=== PATIENT | male | born 1950 | race American Indian/Alaskan Native ===

== ENCOUNTER 2022-03-05 08:47 | Emergency (ER) | payer MEDICARE, OTHER ==
[~2022-03-05] VITALS: Ht 185.4 cm; Wt 105.7 kg
[~2022-03-05 08:47] MED LIST: ASPIRIN EC81 MG PO; DOXYCYCLINE HY100 MG PO; LISINOPRIL5 MG PO
[2022-03-05] MEDS ORDERED: LISINOPRIL20 MG PO (09:01)
[2022-03-05] MEDS ORDERED: ALEVE220 M1 PO (09:01)
[2022-03-05] MEDS ORDERED: SILDENAFIL20 MG PO (09:02)
[2022-03-05] MEDS ORDERED: REGLAN10 MG PO (11:15)
== END 2022-03-05 11:38 | disposition home or self-care (01) ==
LOC: ED 08:47
DX: R11.2 Nausea with vomiting, unspecified (principal); R19.7 Diarrhea, unspecified; I10 Essential (primary) hypertension; Z20.822 Contact with and (suspected) exposure to COVID-19; Z79.899 Other long term (current) drug therapy; Z79.82 Long term (current) use of aspirin
CPT/HCPCS: 36415; 80053; 83690; 85025; 87502; C9803; J7030; U0003

== ENCOUNTER 2022-11-21 12:00 | Day surgery (SDC) | payer MEDICARE, OTHER ==
[~2022-11-21] VITALS: Ht 185.4 cm; Wt 108.2 kg
--- NOTE | ~2022-11-21 | OR ---
[facility] [address] [place], [place] [address] Draft DATE OF OPERATION: 11/21/2022 SURGEON: Anna Aviles MD PREOPERATIVE DIAGNOSIS: Colon surveillance. POSTOPERATIVE DIAGNOSIS: Sigmoid and left-sided diverticulosis, otherwise normal. PROCEDURE: Total colonoscopy to cecum. ANESTHESIA: Intravenous sedation, propofol infusion; America Allen CRNA INDICATIONS: This 71-year-old man is a patient of Dr. Waggoner at [facility]. He is here for surveillance colonoscopy. He last undergone colonoscopy in 2012 at which time he was found to have diverticulosis. He understands the risk of colonoscopy including but not limited to bleeding, infection, perforation, and so on. Understanding this, he wished to proceed. FINDINGS: The prep was good. Complete colonoscopy was undertaken of the cecum without question. He had numerous diverticula of the sigmoid and left colon. No sign of polyps or colitis. PROCEDURE IN DETAIL: The patient was brought to the endoscopy suite and placed in lateral decubitus position, given intravenous sedation to the point of slurred speech and nystagmus. Digital rectal examination was normal. An Olympus video colonoscope was passed in the rectum and manipulated throughout the colon ultimately intubating the cecum itself. The ileocecal valve and appendiceal orifice were normal. The scope was withdrawn from that point. Examination showed no sign of abnormality into the left colon. Numerous diverticula were once again seen. Retroflexed view of the rectum was normal. The scope was removed. The patient was taken to the recovery room in good condition. CONCLUDING DIAGNOSIS: Diverticulosis, no evidence of polyps. PATIENT NAME: LUIS MIGUEL DIEZ OPERATIVE REPORT DATE OF : 52 REPORT #: [id number] PHYSICIAN: ANNA AVILES MD PCP: NAOMI WAGGONER MD REPORT IS CONFIDENTIAL AND NOT TO BE RELEASED WITHOUT AUTHORIZATION [facility] [address] [place], [place] [address] Draft PLAN: Recommend repeat colonoscopy in 10 years if clinically appropriate. MD GLORIA Fontenot/ENZO /[id number] cc: Dr. Naomi Waggoner [facility] Copies: ~ PATIENT NAME: LUIS MIGUEL DIEZ OPERATIVE REPORT DATE OF : 52 REPORT #: [id number] PHYSICIAN: ANNA AVILES MD PCP: NAOMI WAGGONER MD REPORT IS CONFIDENTIAL AND NOT TO BE RELEASED WITHOUT AUTHORIZATION
[~2022-11-21 12:00] MED LIST changes: +ALEVE220 M1 PO; +LISINOPRIL20 MG PO; +REGLAN10 MG PO; +SILDENAFIL20 MG PO
--- NOTE | 2022-11-21 13:49 | NUR ---
11/21/22 1349 Sally Lora 1344 PT ARRIVED SLEEPING, RESPOSIVE TO VERBAL STIMULI, BREATHING IS UNLABORED.NC AT 3LPM NC, SATS >98%. DENIED PAIN AND NAUSEA.
--- NOTE | 2022-11-21 21:50 | EKG ---
[facility] [address] [facility] [place] [address] Signed Marked sinus bradycardia Abnormal ECG No previous ECGs available Confirmed by Andrey Brothers MD () on 11/21/2022 9:50:03 PM Electronically Signed By: ANDREY BROTHERS MD 11/21/222149 PATIENT NAME: LUIS MIGUEL DIEZ Electrocardiogram DATE OF : 52 PHYSICIAN: ANDREY BROTHERS MD REPORT #: [id number] REPORT IS CONFIDENTIAL AND NOT TO BE RELEASED WITHOUT AUTHORIZATION
== END 2022-11-21 14:20 | disposition home or self-care (01) ==
LOC: OPS 12:00 → DS 13:00 → OPS 13:00
PROVIDERS: ATTEND Surgery
PROC: 0DJD8ZZ Inspection of Lower Intestinal Tract, Via Natural or Artificial Opening Endoscopic (ICD-10-PCS; principal; 2022-11-21 13:00)
DX: Z12.11 Encounter for screening for malignant neoplasm of colon (principal); K57.30 Diverticulosis of large intestine without perforation or abscess without bleeding; K42.9 Umbilical hernia without obstruction or gangrene; Z86.19 Personal history of other infectious and parasitic diseases
CPT/HCPCS: 00812; 99153; G0500; J2704; J7121

== ENCOUNTER 2025-06-22 07:14 | Day surgery (SDC) | payer MEDICARE ==
[~2025-06-22] VITALS: Ht 182.9 cm; Wt 111.0 kg
[2025-06-22] VITALS (8 sets, daily range): BP systolic 110–145; BP diastolic 39–65
[~2025-06-22 07:14] MED LIST changes: +EYE HEALTH ARE1 EACH PO; +EZALLOR SPRINKL10 MG PO; +GABAPENTIN 600 MG TAB PO SCH; +IBLOOD GLUCOSE TEST STRIP 1 EA TEST VI PRN; +INTRA-ARTICULAR ANALGESIC INJECTION XX SCH; +JARDIANCE10 MG PO; +JOINT HEALTH T1 EACH PO; +KRILL OIL500 MG PO; +LACTATED RINGER'S 1,000 ML IV SCH; +LIDOCAINE HCL 1% 5 ML SDV INJ ONE; +MULTI VITAMIN1 EACH PO; +OXYCODONE HCL 5 MG TAB PO SCH; +PANTOPRAZOLE SODIUM 40 MG TABEC PO SCH; +TRANEXAMIC ACID IN NACL,ISO-OS 1,000 MG/100 ML PIGGYBACK IV SCH; +VANCOMYCIN HCL 1,000 MG in DEXTROSE 5% 250 ML IV SCH
--- NOTE | 2025-06-22 07:40 | NUR ---
VISITED DURING SPIRITUAL CARE ROUNDS. PT SUPPORTED BY IN ROOM. PT APPEARED CALM, STATED NO NEEDS. APPEARED TENSE, ANXIOUS, STATED WORRIED THAT PT WOULD NOT SURVIVE ANESTHESIA, REQUESTED PRAYER. THERAPEUTIC SPECIALIST PROVIDED SUPPORTIVE PRESENCE, HOSPITALITY, PRAYER, FACILITATED INTERACTION WITH THERAPY ANIMAL. PT AND EXPRESSED GRATITUDE, ARMAND SOURCE OF STRENGTH.
[2025-06-22] MEDS ORDERED: BUPIVACAINE 0.75% IN DEXTROSE 2 ML AMP ONE (08:33)
[2025-06-22] MEDS ORDERED: KETOROLAC TROMETHAMINE 30 MG/ML VIAL IV PRN (08:45)
[2025-06-22] MEDS ORDERED: OXYCODONE HCL 5 MG TAB PO PRN (08:45)
[2025-06-22] MEDS ORDERED: LIDOCAINE HCL 2% 5 ML SDV ONE (09:00)
[2025-06-22] MEDS ORDERED: GLYCOPYRROLATE 1 MG/5 ML MDV ONE (09:34)
[2025-06-22] MEDS ORDERED: ACETAMINOPHEN 1,000 MG/100 ML VIAL ONE (10:00)
[2025-06-22] MEDS ORDERED: METOCLOPRAMIDE HCL 10 MG/2 ML SDV IV PRN (10:15)
[2025-06-22] MEDS ORDERED: HYDROmorphone HCL 1 MG/ML SYR IV PRN (10:15)
[2025-06-22] MEDS ORDERED: NALOXONE HCL 0.4 MG SYR IV PRN (10:15)
[2025-06-22] MEDS ORDERED: fentaNYL citrate 50 MCG/ML SDV IV PRN (10:15)
[2025-06-22] MEDS ORDERED: IBLOOD GLUCOSE TEST STRIP 1 EA TEST VI PRN (10:15)
[2025-06-22] MEDS ORDERED: KETOROLAC TROMETHAMINE 30 MG/ML VIAL ONE (10:55)
[2025-06-22] MEDS ORDERED: CEFUROXIME250 MG PO (10:59)
[2025-06-22] MEDS ORDERED: OXYCODONE HCL5 M1 PO ×2 (11:00→11:09)
[2025-06-22] MEDS ORDERED: DICLOFENAC SODI75 MG PO (11:00)
[2025-06-22] MEDS ORDERED: ACETAMINOPHEN500 MG PO (11:00)
[2025-06-22] MEDS ORDERED: SENNA LAX8.6 MG PO (11:00)
[2025-06-22] MEDS ORDERED: TRANEXAMIC ACI650 MG PO (11:01)
--- NOTE | 2025-06-22 11:03 | NUR ---
06/22/25 1103 Julita Longoria 1055: PT ARRIVES TO PACU. REPORT RECEIVED FROM STEM PROCESSING MACHINE OPERATOR AND BIG DATA ANALYTICS LEAD.
[2025-06-22] MEDS ORDERED: CEFUROXIME500 MG PO (11:09)
[2025-06-22] MEDS ORDERED: TRANEXAMIC ACID IN NACL,ISO-OS 1,000 MG/100 ML PIGGYBACK IV SCH (11:31)
--- NOTE | 2025-06-22 11:48 | NUR ---
IN PT ROOM FOR TXA ADMIN. PT CONTINUES TO REPORT NO PAIN AND UNABLE TO MOVE LEGS. PT TOLERATED 100% OF SNACK AND WATER WITHOUT DIFFICULTY SWALLOWING. CALL LIGHT WITHIN REACH. FAMILY HAS LEFT TO GET MEDICATIONS FROM [facility].
--- NOTE | 2025-06-22 12:27 | OR ---
[facility] [address] [facility] [place], [place] [address] Signed DATE OF OPERATION: 06/22/2025 SURGEON: Jessy Patel MD PREOPERATIVE DIAGNOSIS: Severe left hip degenerative joint disease. POSTOPERATIVE DIAGNOSIS: Severe left hip degenerative joint disease. PROCEDURE PERFORMED: Left total hip arthroplasty with Artemio. BINDERY CHIEF: None. ANESTHESIA: Spinal. BLOOD LOSS: 200 mL. IMPLANTS: Insignia size 6 with a 58 mm cup, a +2.5 head. BRIEF HISTORY: Luis Miguel is a 74-year-old gentleman with progressive worsening of osteoarthritis in his hip. He had undergone nonoperative treatment without substantial relief, wished to proceed with operative. DESCRIPTION OF PROCEDURE: Once consent was obtained, he was taken to the operating room. After adequate anesthesia was placed on the OR table in the right lateral decubitus position. All downside pressure points were well padded. An axillary roll was placed. The leg was prepped and draped in a standard sterile fashion up to the ribcage. The computer array for the Adelaida Artemio was then placed in the posterior aspect of the iliac crest one handbreadth posterior to the ASIS. This was done through separate stab incisions. The hip was then approached through standard anterior lateral approach, carried through skin and subcutaneous tissue. The IT band was divided longitudinally. The vastus lateralis was divided from the tip of the trochanter along the anterior margin of the femur Electronically Signed By: JESSY PATEL MD 06/22/25 1227 PATIENT NAME: LUIS MIGUEL DIEZ OPERATIVE REPORT DATE OF : 52 REPORT #: [id number] PHYSICIAN: JESSY PAETL MD PCP: NAOMI BAE MD REPORT IS CONFIDENTIAL AND NOT TO BE RELEASED WITHOUT AUTHORIZATION [facility] [address] [place], [place] [address] Signed distally. This was then carried up into the medius and capsule. The gluteus minimus was released as well. The capsule was then split from the femoral neck to the acetabular rim, peeled off the anterior femoral neck around to the level of the lesser trochanter. Periacetabular soft tissue was removed as best we could. The femoral landmarks were then taken with the computer and the hip was dislocated. The femoral neck cut was made one fingerbreadth above the lesser trochanter. The periacetabular soft tissue was continued to be cleaned up and the osteophytes removed. The pulvinar was removed. The fine anatomic points of the acetabulum then registered with the robot. The robot was then brought in. The acetabulum was reamed in a single pass up to 58. The 58 cup was then impacted in 40 degrees of abduction and 20 degrees of anteversion. The acetabular liner was then impacted. Attention was then turned to proximal femur which was opened using OnHand cutter, followed by the Tawanda awl. It was then reamed with a lateralize reamer and sequentially broached up to a 6 broach, which was found to be well fitting. This was left in position. A high offset neck and initially a 2.5 and then a +2.5 head were positioned. The +2.5 head was stable. He had good range of motion and the leg lengths were 2 mm long according to computer. Once this was completed, the hip was dislocated. The trials were removed. The final stem was impacted until it was well-seated. The +2.5 was impacted onto the trunnion after cleaning it. The hip was then reduced again. Range of motion was found to be good. The leg lengths were equal. The wound was then irrigated with one bottle Surgiphor followed by normal saline. The periarticular soft tissues were injected with 80 mL ropivacaine Toradol mixture. The capsule was then closed using #2 FiberWire. The vastus and IT band layers were closed independently using #2 Stratafix, the subcutaneous tissue with 0 Stratafix and the skin with 3-0 Stratafix. Wound was sealed with LiquiBand and dressed with an Acticoat-7 dressing as were the two puncture holes for the robot. Jessy Patel MD BA/JOSHL /[id number] Electronically Signed By: JESSY PATEL MD 06/22/25 1227 PATIENT NAME: LUIS MIGUEL DIEZ OPERATIVE REPORT DATE OF : 52 REPORT #: [id number] PHYSICIAN: JESSY PATEL MD PCP: NAOMI BAE MD REPORT IS CONFIDENTIAL AND NOT TO BE RELEASED WITHOUT AUTHORIZATION [facility] [address] [place] [id number] Signed Copies: ~ Electronically Signed By: JESSY PATEL MD 06/22/25 1227 PATIENT NAME: LUIS MIGUEL DIEZ OPERATIVE REPORT DATE OF : 52 REPORT #: [id number] PHYSICIAN: JESSY PATEL MD PCP: NAOMI BAE MD REPORT IS CONFIDENTIAL AND NOT TO BE RELEASED WITHOUT AUTHORIZATION
--- NOTE | 2025-06-22 12:53 | NUR ---
IN PT ROOM FOR VS AND ASSESSMENT. NO ACUTE CHANGES FROM PREVIOUS ASSESSMENT. PT ABLE TO SLIGHLY MOVE RT LEG, BUT SENSATION REMAINS HIP LEVEL. LUNCH PROVIDED. CALL LIGHT WITHIN REACH, PT STATES NO FURTHER NEEDS OR QUESTIONS AT THIS TIME. URINAL AT BEDSIDE.
--- NOTE | 2025-06-22 13:25 | NUR ---
VS AND ASSESSMENT PERFORMED. NO ACUTE CHANGES FROM PREVIOUS ASSESSMENT. CALL LIGHT WITHIN REACH.
--- NOTE | 2025-06-22 14:10 | NUR ---
VS AND ASSESSMENT PERFORMED. PT STATES NO CHANGES IN PAIN, NONE PRESENT AT THIS TIME. NO ACUTE CHANGES FROM PREVIOUS ASSESSMENT. PT TOLERATED 100% OF LUNCH W/NO ONSET OF NAUSEA. CALL LIGHT WITHIN REACH.
--- NOTE | 2025-06-22 14:50 | NUR ---
PADMINI W/PHYSICAL THERAPY IN PT ROOM TO PERFORM ASSESSMENT AND DO BED EXERCISES W/PT. CALL LIGHT WITHIN REACH.
[2025-06-22] MEDS ORDERED: CEFAZOLIN SODIUM 2 GM in SODIUM CHLORIDE 0.9% 100 ML IV SCH (15:00)
[2025-06-22] MEDS ORDERED: ACETAMINOPHEN 500 MG TAB PO SCH (15:00)
[2025-06-22] MEDS ORDERED: GABAPENTIN 300 MG CAP PO SCH (15:00)
--- NOTE | 2025-06-22 15:30 | NUR ---
PHYSICAL THERAPY IN ROOM TO WORK W/PT.
--- NOTE | 2025-06-22 15:48 | NUR ---
PT OFF TO PHYSICAL THERAPY ROOM W/FAMILY MEMBERS AND PADMINI W/PHYSICAL THERAPY.
--- NOTE | 2025-06-22 16:20 | NUR ---
PT BLADDER SCANNED D/T UNABLE TO VOID AFTER WORKING WITH PHYSICAL THERAPY. PT BLADDER SCAN VOLUME BETWEEN [phone]. PT FAMILY IN ROOM. PT CONTINUES TO DRINK WATER. CALL LIGHT WITHIN REACH. PT CONTINUES TO REPORT ONLY ACHINESS IF WALKING, PAIN 0/10 AT REST.
--- NOTE | 2025-06-22 16:50 | NUR ---
PT TO RESTROOM, GAIT STEADY W/FWW. THIS RN STANDBY ASSIST. PT UNABLE TO VOID. BACK TO BED. PT CONTINUES TO DRINK WATER.
--- NOTE | 2025-06-22 17:05 | NUR ---
PT BLADDER SCANNED AGAIN, VOLUME 442 ML.
--- NOTE | 2025-06-22 17:07 | NUR ---
ARPITA IRWIN CALLED AND PROVIDED UPDATE ON PT PASSING OF REQUIREMENTS BESIDES URINE VOID. VO RECEIVED FOR .8 FLOMAX, STRAIGHT CATH, AND TO FLOOR FOR EXTENDED RECOVERY. FAMILY AND PT UPDATED, AGREEABLE TO PLAN OF CARE AT THIS TIME. ORAL MEDS GIVEN (SEE EMAR).
[2025-06-22] MEDS ORDERED: LIDOCAINE 2% VISCOUS 6 ML SYR TOP ONE (17:15)
[2025-06-22] MEDS ORDERED: TAMSULOSIN HCL 0.4 MG CAP PO ONE (17:15)
--- NOTE | 2025-06-22 17:42 | NUR ---
PT STRAIGHT CATHED, STERILITY MAINTAINED, 450 ML OUTPUT. BRITTON CARE PERFORMED, UNDERWEAR BACK IN PLACE. PT REPORTS NO DISCOMFORT WITH PROCEDURE.
--- NOTE | 2025-06-22 18:00 | NUR ---
PT TRANSPORTED VIA STRETCHER TO RM 109. PT STAND/PIVOT W/THIS RN STANDBY ASSIST TO BED. REPORT GIVEN TO HEAVEN LEGGETT. CALL LIGHT WITHIN REACH, BED IN LOWEST POSITION, WARM BLANKETS PROVIDED. NO FAMILY IN ROOM AT THIS TIME. ALL BELONGINGS IN PT POSSESSION. RN NOTIFIED OF PT HOME MEDS AND CELL PHONE IN GREEN BAG. SCD'S, CRYO CUFF, FOOT PUMPS, HEEL PROTECTORS, SARA HOSE REMAIN IN PLACE. NO FURTHER NEEDS PER HEAVEN RN OR PT AT THIS TIME.
--- NOTE | 2025-06-22 18:13 | NUR ---
PT TO ROOM VIA GURNEY SELF TRANSFERS TO THE BED. FOOT PUMPS AND CRYO IN PLACE. PT AGREES HE IS COMFORTABLE. ORIENTED TO ROOM AND ROUTINE PT VERBALIZES UNDERERSTANDING. FRESH H20 TO BEDSIDE EVENING MEAL PROVIDED.
--- NOTE | 2025-06-22 18:35 | NUR ---
PT SITTING UP EATING HIS MEAL WATCHING TV. CALL LIGHT IN LAP.
--- NOTE | 2025-06-22 19:19 | NUR ---
REPORT RECEIVED FROM DAY SHIFT RN. PT LYING IN BED ALERT AND ORIENTED. DENIES NEEDS. WHITE BOARD UPDATED. CALL LIGHT IN REACH.
--- NOTE | 2025-06-22 20:05 | NUR ---
pt has no needs at this time. call light within reach.
[2025-06-22] MEDS ORDERED: SENNOSIDES 1 TAB PO SCH (21:00)
--- NOTE | 2025-06-22 22:42 | NUR ---
EVENING ASSESSMENT COMPLETE. SCHEDULED MEDS ADMIN PER EMAR. PT REPORTS LEFT HIP PAIN 11/10. SCHEDULED PAIN MEDS GIVEN. UP TO BR WITH FWW AND SBA TO VOID 175 ML CLEAR YELLOW URINE. GAIT STEADY. BACK TO BED, MACARENA WELL. SCD'S/CRYO IN PLACE. ROLLED TOWELS PLACED UNDER HEELS. LEFT HIP DRESSING WITH SMALL AMOUNT SEROSANG DRAINAGE. CMS INTACT. CPOX IN PLACE. PT DENIES QUESTIONS OR CONCERNS. CALL LIGHT IN REACH. BED ALARM FOR SAFETY.
--- NOTE | 2025-06-23 00:14 | NUR ---
PT RESTING IN BED WITH EYES CLOSED. RESPIRATIONS EVEN. CALL LIGHT IN REACH.
[2025-06-23 02:08] VITALS: BP 150/69
--- NOTE | 2025-06-23 02:12 | NUR ---
PT AWAKE IN BED. UP TO BR WITH FWW AND SBA TO VOID. BACK TO BED, MACARENA WELL. PT DENIES PAIN AT REST. LEFT HIP DRESSING UNCHANGED. SCD'S/TEDS IN PLACE. FRESH ICE TO CRYO. VS AND I&O OBTAINED. PT DENIES FURTHER NEEDS. CALL LIGHT IN REACH.
--- NOTE | 2025-06-23 04:06 | NUR ---
PT AWAKE IN BED. UP TO BR WITH SBA AND FWW TO VOID. GAIT STEADY. BACK TO BED, MACARENA WELL. NO FURTHER NEEDS.
[2025-06-23 05:51] VITALS: BP 114/46
--- NOTE | 2025-06-23 05:51 | NUR ---
PT RESTING WITH EYES CLOSED. AWAKENS EASILY. VS AND I&O OBTAINED. FRESH ICE TO CRYO. PT DENIES NEEDS. CALL LIGHT IN REACH.
--- NOTE | 2025-06-23 07:37 | NUR ---
PT RESTING EYES CLOSED AT TIME OF SHIFT REPORT, LEFT UNDISTURBED. CALL LIGHT AND NEEDED ITEMS AT BEDSIDE.
[2025-06-23] MEDS ORDERED: DICLOFENAC SOD 75 MG TABEC PO SCH (08:00)
--- NOTE | 2025-06-23 08:07 | NUR ---
UR CLINICAL REVIEW: 2 MN FOR VERSALUS- PER REGIONAL CONTROLLER MEETS EXTENDED STAY RECOVERY FOR L THR WITH NEED TO MEET DC PARAMETERS [facility] EXTENDED STAY 06/22/25 @ 0239 ORDER MATCHES REG NO AUTH REQUIRED PER MEDICARE GUIDELINES MD DISCHARGE TO HOME TODAY
--- NOTE | 2025-06-23 08:34 | NUR ---
REVIEWED DC INSTRUCTIONS WITH PT HE VERBALIZES UNDERSTANDING. PT REVIEWING WRITTEN COPY AT THIS TIME. PHARMACY GIVES MEDICATION INSTRUTIONS ALL QUESTIONS ANSWERED.
[2025-06-23 08:51] VITALS: BP 156/72
[2025-06-23] MEDS ORDERED: ASPIRIN 325 MG TAB PO SCH (09:00)
--- NOTE | 2025-06-23 09:01 | NUR ---
ALERT AND ORIENTED IN BED. LIVES IN HOUSE, HAS WALKER AND SHOWER CHAIR. DRIVES AT BASELINE BUT HAS A RIDE HOME. NO FINANCIAL CONCERNS. PLANS TO DC TO HOME TODAY. NO CM NEEDS.
--- NOTE | 2025-06-23 09:12 | NUR ---
PT IS DRESSED AND READY TO GO DENIES FURTHER QUESTIONS. ALL PERSONAL ITEMS GATHERED WALK THROUGH IN ROOM NO PERSONAL ITEMS LEFT BEHIND. WRITTEN INSTRUCTIONS HAVE BEEN REVIEWED WELL WHAT MEDS WERE GIVEN AND WHAT TO TAKE NEXT WHEN. PT VERBALIZES UNDERSTANDING.
--- NOTE | 2025-06-23 09:24 | NUR ---
PT TAKEN TO HIS WIFES CAR VIA W/C AFTER DC.
== END 2025-06-23 09:15 | disposition home or self-care (01) ==
LOC: DS 07:14 → MS 17:08 → DS 06-23 09:15
PROVIDERS: ATTEND Specialist
PROC: 0SRB0JZ Replacement of Left Hip Joint with Synthetic Substitute, Open Approach (ICD-10-PCS; principal; 2025-06-22 09:05)
DX: M16.12 Unilateral primary osteoarthritis, left hip (principal); E78.5 Hyperlipidemia, unspecified; I12.9 Hypertensive chronic kidney disease with stage 1 through stage 4 chronic kidney disease, or unspecified chronic kidney disease; N18.30 Chronic kidney disease, stage 3 unspecified; Z87.891 Personal history of nicotine dependence; Z88.8 Allergy status to other drugs, medicaments and biological substances; Z79.899 Other long term (current) drug therapy
CPT/HCPCS: 0055T; 27130; 01214; 72170; 97110; 97161; 97530; A9270; C1776; J0131; J1885; J2003; J2704; J3373; J7060; J7121